=== PATIENT | male | born 1980 | race Caucasian/White ===

== ENCOUNTER 2017-06-27 19:30 | Emergency (ER) | payer OTHER ==
[~2017-06-27] VITALS: Ht 182.9 cm; Wt 87.5 kg
[2017-06-27] MEDS ORDERED: EZ PAQUE SUSP 12OZ BTL ONE (19:49)
[2017-06-27] MEDS ORDERED: GASTROGRAFIN 30 ML SOL ONE (20:10)
[2017-06-27] MEDS ORDERED: SODIUM CHLORIDE 0.9% 1,000 ML IV ONE (20:45)
[2017-06-27] MEDS ORDERED: GLUCAGON HYDROCHLORIDE (RDNA) 1 MG VIAL IV ONE ×2 (20:45→22:15)
[2017-06-27] MEDS ORDERED: fentaNYL CITRATE 100 MCG/2 ML VL ONE (23:47)
[2017-06-27] MEDS ORDERED: FLUMAZENIL 0.1 MG/ML INJ 10ML MDV IV ONE (23:47)
[2017-06-27] MEDS ORDERED: MIDAZOLAM HCL 5 MG/ML-1ML VIAL ONE (23:47)
[2017-06-27] MEDS ORDERED: diphenhdrAMINE HCL 50 MG/1 ML VL ONE (23:47)
[2017-06-27] MEDS ORDERED: SODIUM CHLORIDE LOCK 10 ML ONE (23:47)
[2017-06-27] MEDS ORDERED: NALOXONE HCL 0.4 MG/ML VIAL ONE (23:47)
[2017-06-27] MEDS ORDERED: BENZOCAINE (DENTAL) 20 % SPRAY 60ML MT ONE (23:47)
[2017-06-28 00:57] VITALS: BP 123/75
== END 2017-06-28 02:37 | disposition home or self-care (01) ==
LOC: ER 19:42
DX: T18.108A Unspecified foreign body in esophagus causing other injury, initial encounter (principal); X58.XXXA Exposure to other specified factors, initial encounter; Y93.89 Activity, other specified; Y99.8 Other external cause status; Y92.89 Other specified places as the place of occurrence of the external cause
CPT/HCPCS: 74220; 96361; 96374; 96375; 99284; J1200; J1610; J2250; J3010; J7030; Q9963